=== PATIENT | male | born 1965 | race Caucasian/White ===

== ENCOUNTER 2017-09-05 10:02 | Emergency (ER) | payer MEDICAID, SELFPAY ==
[~2017-09-05] VITALS: Ht 188 cm; Wt 94.4 kg
[2017-09-05] MEDS ORDERED: HYDROcodone/APAP 5/325 TABLET ONE (10:40)
[2017-09-05] MEDS ORDERED: HYDROcodone/APAP 5/325 TABLET PO ONE (11:00)
[2017-09-05 11:33] VITALS: BP 124/62
== END 2017-09-05 11:37 | disposition home or self-care (01) ==
LOC: EDBD 10:02 → ED 11:25
DX: S92.424A Nondisplaced fracture of distal phalanx of right great toe, initial encounter for closed fracture (principal); S60.222A Contusion of left hand, initial encounter; G89.29 Other chronic pain; F17.200 Nicotine dependence, unspecified, uncomplicated; W01.0XXA Fall on same level from slipping, tripping and stumbling without subsequent striking against object, initial encounter; Y93.55 Activity, bike riding; Y92.410 Unspecified street and highway as the place of occurrence of the external cause; Y99.8 Other external cause status
CPT/HCPCS: 99284

== ENCOUNTER 2019-12-18 11:34 | Emergency (ER) | payer MEDICAID ==
[~2019-12-18] VITALS: Ht 188 cm; Wt 93.3 kg
[2019-12-18 11:37] VITALS: BP 120/77
== END 2019-12-18 12:10 | disposition home or self-care (01) ==
LOC: ED 12:04
DX: S09.90XA Unspecified injury of head, initial encounter (principal); F17.200 Nicotine dependence, unspecified, uncomplicated; Y00.XXXA Assault by blunt object, initial encounter; Y93.89 Activity, other specified; Y92.488 Other paved roadways as the place of occurrence of the external cause; Y99.8 Other external cause status
CPT/HCPCS: 99283